=== PATIENT | female | born 1995 | race Caucasian/White ===

== ENCOUNTER → 2018-08-18 | Outpatient (CLI) | payer MEDICAID ==
--- NOTE | 2018-08-18 08:32 | US ---
EXAMINATION TYPE: US gallbladder DATE OF EXAM: 08/18/2018 COMPARISON: NONE CLINICAL HISTORY: 23-year-old female R11.0 nausea and vomiting for 1 month. Abdominal pain TECHNIQUE: Multiple sonographic images of the right upper quadrant are obtained. FINDINGS: EXAM MEASUREMENTS: Liver Length: 15.0 cm Gallbladder Wall: 0.2 cm CBD: 0.2 cm Right Kidney: 10.0 x 4.0 x 5.0 cm Pancreas: Obscured by bowel gas Liver: appears wnl Gallbladder: no evidence of stones. No abnormal distention, wall thickening, or pericholecystic flui d. Evidence for sonographic Corado's sign: no CBD: wnl Right Kidney: no evidence of hydronephrosis. IMPRESSION: Suboptimal visualization of the pancreas. Otherwise, unremarkable sonographic examination of the righ t upper quadrant.
== END | disposition home or self-care (01) ==
LOC: RADUSWWP 07:31
PROVIDERS: ATTEND Family Medicine
DX: R11.0 Nausea (principal)
CPT/HCPCS: 76705

== ENCOUNTER → 2021-03-04 | Outpatient (CLI) | payer BC ==
--- NOTE | 2021-03-04 14:44 | XR ---
EXAMINATION TYPE: XR ankle complete LT DATE OF EXAM: 03/04/2021 CLINICAL HISTORY: Lateral pain after fall injury TECHNIQUE: Frontal, lateral and oblique images of the left ankle are obtained. COMPARISON: None. FINDINGS: There is no acute fracture/dislocation evident in the left ankle. The ankle mortise appea rs within normal limits. Os trigonum is noted. Accessory ossicle near base of fifth metatarsal also i dentified. The overlying soft tissue appears unremarkable. IMPRESSION: There is no acute fracture or dislocation in the left ankle.
== END | disposition home or self-care (01) ==
LOC: RADXRMAIN 14:03
PROVIDERS: ATTEND Nurse Practitioner Adult Health
DX: M25.572 Pain in left ankle and joints of left foot (principal)

== ENCOUNTER → 2024-07-30 | Outpatient (CLI) | payer BC | LOC: LABWHC1 08:56 | PROVIDERS: ATTEND Physician Assistant | DX: N91.2 Amenorrhea, unspecified (principal) | CPT/HCPCS: 36415; 84702 ==

== ENCOUNTER → 2024-11-04 | Outpatient (CLI) | payer BC ==
[2024-11-04 16:17] LABS: HGB 14.4 g/dL (12.0-15.0); MCH 29.4 pg (27.0-32.0); MCHC 33.5 g/dL (32.0-37.0); MCV 87.9 FL (80.0-97.0); Mean Platelet Volume 9.5 FL (9.5-12.2); NRBC Per 100 WBC 0 X 10*3/uL (0.00-0.01); Platelet Count 280 X 10*3/uL (140-440); RBC 4.89 X 10*6/uL (4.10-5.20); RDW 13.7 % (11.5-14.5); WBC 7.46 X 10*3/uL (4.50-10.00)
[2024-11-04 16:25] LABS: Progesterone 0.2 ng/mL
[2024-11-04 16:34] LABS: ALT 47 U/L (8-44); AST 25 U/L (13-35); Albumin 4.5 g/dL (3.8-4.9); Alkaline Phosphatase 59 U/L (41-126); BUN/Creat Ratio 16.71 Ratio (12.00-20.00); Blood Urea Nitrogen 11.7 mg/dL (9.0-27.0); Calcium 9.4 mg/dL (8.7-10.3); Carbon Dioxide 24.7 mmol/L (21.6-31.8); Chloride 103 mmol/L (96-109); Estradiol 61.5 pg/mL; Globulin 2.5 g/dL (1.6-3.3); Glucose 87 mg/dL (70-110); Potassium 4.6 mmol/L (3.5-5.5); Sodium 138 mmol/L (135-145); T4, Free (Free Thyroxine) 1.15 ng/dL (0.80-1.80); Total Bilirubin 0.4 mg/dL (0.3-1.2)
[2024-11-04 16:35] LABS: Follicle Stimulating Hormone 5.1 mIU/mL; Luteinizing Hormone 3.3 mIU/mL
== END | disposition home or self-care (01) ==
LOC: LABWHC1 10:58
PROVIDERS: ATTEND Family Medicine
DX: N97.9 Female infertility, unspecified (principal)
CPT/HCPCS: 36415; 80053; 82306; 82670; 82671; 83001; 83002; 84144; 84436; 84439; 84443; 84479; 84481; 85027

== ENCOUNTER → 2025-05-15 | Outpatient (CLI) | payer BC | END | disposition home or self-care (01) | LOC: LABWHC1 16:10 | PROVIDERS: ATTEND Family Medicine | DX: Z32.01 Encounter for pregnancy test, result positive (principal) | CPT/HCPCS: 36415; 84702 ==

== ENCOUNTER → 2025-05-17 | Outpatient (CLI) | payer BC | END | disposition home or self-care (01) | LOC: LABWHC1 14:28 | PROVIDERS: ATTEND Obstetrics & Gynecology | DX: N92.6 Irregular menstruation, unspecified (principal) | CPT/HCPCS: 36415; 84144; 84702 ==